=== PATIENT | male | born 1990 | race Two or more races ===

== ENCOUNTER 2018-03-23 21:01 | Observation (INO) | payer OTHER ==
[2018-03-23] MEDS ORDERED: NS 1,000 ML IV ONE (21:08)
--- NOTE | 2018-03-23 21:15 | EDPHY ---
H & P Stated Complaint: 2 SYNCOPAL EPISODES Time Seen by Provider: 03/23/18 21:12 HPI/ROS: CHIEF COMPLAINT: Syncope HISTORY OF PRESENT ILLNESS: 27-year-old male presents after syncopal episode. He was sitting at a restaurant, began to feel lightheaded. He stood up and then had a witnessed syncopal episode. He quickly stood up again and had a recurrent syncopal episode. EMS was called. IV normal saline given. He now feels sleepy, but otherwise better. 1 alcoholic beverage this evening, no drug use. No prior history of syncope and no recent illness. REVIEW OF SYSTEMS: complete 10 point ROS reviewed and is negative except for the noted elements in the HPI - Personal History Current Tetanus Diphtheria and Acellular Pertussis (TDAP): No - Medical/Surgical History Hx Asthma: No Hx Chronic Respiratory Disease: No Hx Diabetes: No Hx Cardiac Disease: No Hx Renal Disease: No Hx Cirrhosis: No Hx Alcoholism: No Hx HIV/AIDS: No Hx Splenectomy or Spleen Trauma: No Other PMH: Denies - Social History Smoking Status: Never smoked Alcohol Use: Occasionally Drug Use: None - Physical Exam Exam: General Appearance: Alert, pleasant Eyes: Pupils equal and round, no conjunctival pallor or injection ENT, Mouth: Mucous membranes moist, tenderness and swelling left mandibular area, able to open/close mouth normally, chin abrasion Neck: Normal inspection, no midline tenderness, range of motion without pain Respiratory: Lungs are clear to auscultation, no chest wall tenderness Cardiovascular: Regular rate and rhythm Gastrointestinal: Abdomen is soft and nontender Neurological: A&O, CN II-XII intact, motor/sensory grossly intact Skin: Warm and dry Extremities: normal inspection Psychiatric: Mood and affect normal Constitutional: Initial Vital Signs Temperature (C) 36.8 C 03/23/18 21:03 Heart Rate 72 03/23/18 21:03 Respiratory Rate 17 03/23/18 21:03 Blood Pressure 107/69 03/23/18 21:03 O2 Sat (%) 100 03/23/18 21:03 O2 Delivery Mode Room Air Allergies/Adverse Reactions: No Known Allergies Allergy (Verified 03/24/18 09:47) Home Medications: Medication Instructions Recorded Multivitamins [Multivitamin (*)] 1 each PO DAILY 03/24/18 Medical Decision Making - Diagnostics EKG Interpretation: EKG interpreted by me reveals normal sinus rhythm, rate 65, incomplete right bundle branch block, ST segment elevation consistent with early repolarization pattern. Interpretation: Borderline EKG. Repeat EKG interpreted by me reveals normal sinus rhythm, rate 67, incomplete right bundle branch block, ST segment elevation, consistent with early repolarization; similar to prior EKG ED Course/Re-evaluation: 10pm: Troponin elevated at 0.15. I consulted Dr. Salazar, who reviewed the patient 's history, labs and EKG on line; no indication for emergent cath tonight. Suggests admission to telemetry overnight to the hospitalist service with serial troponins. ECHO in am. The hospitalist service was consulted for admission. Serial assessments of pt, gradually felt less drowsy and back to his normal state. Contusion left mandibular area, pt able to open close mouth normally, no evidence for fx and no indication for imaging. Differential Diagnosis: Differential diagnosis includes though is not limited to cardiac dysrhythmia, CVA, TIA, GI bleed, sepsis, hypoglycemia. - Data Points Laboratory Results: Laboratory Results 03/23/18 21:37 03/23/18 21:37 Medications Given: Discontinued Medications Aspirin (Aspirin) 81 mg PO ONCE ONE Stop: 03/23/18 23:17 Last Admin: 03/24/18 00:28 Dose: 81 mg Sodium Chloride (Ns) 1,000 mls @ 0 mls/hr IV EDNOW ONE; Wide Open PRN Reason: Protocol Stop: 03/23/18 21:09 Last Admin: 03/23/18 21:17 Dose: 1,000 mls Sodium Chloride (Ns) 1,000 mls @ 125 mls/hr IV CONT SHAJI Stop: 09/19/18 23:29 Last Admin: 03/24/18 03:29 Dose: 1,000 mls Point of Care Test Results: Chemistry 03/23/18 21:39 POC Troponin I 0.15 ng/mL H ng/mL (0.00-0.08) Departure - Departure Disposition: [facility] Inpatient Acute Clinical Impression: Syncope Qualifiers: Syncope type: unspecified Qualified Code(s): R55 - Syncope and collapse Condition: Fair
[2018-03-23 21:46] LABS: PLATELET COUNT 227 10^3/uL (150-400)
--- NOTE | 2018-03-23 23:15 | CPEKG ---
Test Reason : OPEN Blood Pressure : / mmHG Vent. Rate : 065 BPM Atrial Rate : 065 BPM P-R Int : 196 ms QRS Dur : 120 ms QT Int : 397 ms P-R-T Axes : 054 064 010 degrees QTc Int : 413 ms Sinus rhythm Nonspecific intraventricular conduction delay ST elev, probable normal early repol pattern Confirmed by Brenda Henao ([id number]) on 03/23/2018 11:14:49 PM Referred By: Confirmed By:Brenda Henao
[2018-03-23] MEDS ORDERED: ACETAMINOPHEN 325 MG TAB PO PRN (23:16)
[2018-03-23] MEDS ORDERED: ASPIRIN 81 MG CHEWABLE TAB PO ONE (23:16)
[2018-03-23] MEDS ORDERED: ONDANSETRON DISINTEGRATING 4 MG TAB PO PRN (23:16)
[2018-03-23] MEDS ORDERED: ONDANSETRON 4 MG/2 ML VIAL IVP PRN (23:16)
--- NOTE | 2018-03-23 23:16 | CPEKG ---
Test Reason : OPEN Blood Pressure : / mmHG Vent. Rate : 067 BPM Atrial Rate : 067 BPM P-R Int : 170 ms QRS Dur : 118 ms QT Int : 388 ms P-R-T Axes : 035 081 022 degrees QTc Int : 410 ms Sinus rhythm Incomplete right bundle branch block ST elev, probable normal early repol pattern Confirmed by Brenda Henao ([id number]) on 03/23/2018 11:15:48 PM Referred By: Confirmed By:Brenda Henao
[2018-03-23] MEDS ORDERED: NS 1,000 ML IV SCH (23:30)
--- NOTE | 2018-03-23 23:51 | GHP ---
DATE OF ADMISSION: 03/23/2018 HISTORY OF PRESENT ILLNESS: The patient is a 27-year-old gentleman who presents with syncope. He wa s in his usual state of health. He was at a restaurant, [employer] in [place], when he felt li ghtheaded when he stood up, and he passed out. He denies recent fever, chills, cough, sputum, nausea , vomiting, diarrhea. He says he has been eating and drinking normally. He has normal exercise [place]. He does not have a family history of sudden cardiac . He did use a small amount of pierre keith before dinner. He is not intoxicated. He denies eating a large meal. He has no history of se izure disorder. REVIEW OF SYSTEMS: Complete 10-point review of systems conducted negative except as in the HPI. PAST MEDICAL HISTORY: None. ALLERGIES: None. HOME MEDICATIONS: None. 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 Moderate alcohol. No tobacco. FAMILY HISTORY: Reviewed and unremarkable. PHYSICAL EXAMINATION: VITAL SIGNS: Temp 36.8, blood pressure 107/69, pulse 72, breathing 17 times a minute, 100% on room air. GENERAL: No acute distress. HEENT: Sclerae anicteric. Oropharynx sheeba r. Mucous membranes moist. NECK: Supple without lymphadenopathy or JVD. LUNGS: Clear to ausculta tion bilaterally. HEART: S1, S2. No murmur. ABDOMEN: Soft, nontender, nondistended. LOWER EXTRE MITIES: No edema. Calves are nontender. SKIN: Without rash. NEUROLOGIC: Nonfocal. LABS: His chem 7 is normal. The point of care troponin is 0.15; the upper limit of normal is 0.08 i n that test. A laboratory troponin is less than 0.012. CBC: White count 6.9, hematocrit 43, platel ets are 227,000. Chest x-ray interpreted by me shows no acute cardiopulmonary disease. EKG interpre rajeev by me shows sinus at 65 with normal axis and intervals. There is J-point elevation in the precor dial leads consistent with early repolarization. There is no ST or T-wave changes otherwise. A repe at EKG demonstrates the same morphology without dynamic ST or T-wave changes. I have discussed the case with Dr. Josselyn Henao. ASSESSMENT AND PLAN: A 27-year-old gentle with syncope. 1. Syncope. The exact etiology of this is uncertain. I suspect vasovagal given the restaurant sett ing. We will follow him on telemetry. 2. Positive troponin. These point of care troponins are notoriously inaccurate. I suspect that is the etiology of this positive troponin as opposed to actual cardiac process. We will repeat troponin shortly and in the morning and perform echocardiogram. 3. Prophylaxis. Low risk. DISPOSITION: Observation status. /[id number]/MODL
[2018-03-24 10:52] VITALS: BP 112/71
--- NOTE | 2018-03-24 11:59 | ECHO ---
[email or web address] [address] Main: [phone] Fax: Transthoracic Echocardiogram Name: ANDERSON CHRISTOPHER MR#: [id number] Study Date: 03/24/2018 Study Time: 07:44 AM Date of : 1990 Age: 27 year(s) Height: 172.7 cm (68 in.) Weight: 79.38 kg (175 lb.) BSA: 1.93 m2 Gender: Male Examination: Echo Indication: Syncope/indeterminate troponin Image Quality: Technically Difficult Contrast: Requested by: Rainer Gray BP: 108 mmHg/68 mmHg Heart Rate: Rhythm: Indication: Syncope/indeterminate troponin Procedure Staff Medical Records Manager: [facility] Reading Physician: Javid Salazar MD Requesting Provider: Conclusions: Normal size left ventricle. Normal global systolic LV function. The ejection fraction is estimated to be 60-65 %. No regional wall motion abnormality. Normal diastolic LV function. Upper normal size right ventricle. Normal RV function. The left atrium is normal in size. The right atrium is not well visualized. Mild tricuspid regurgitation is present. The pulmonary artery pressure is mildly increased. RVSP is 38 mmHG.. The IVC is moderately dilated. There is no inspiratory collapse of the IVC. RAP 20 mmHg. No pericardial effusion. Measurements: Chambers Valvular Assessment AV/MV Valvular Assessment TV/PV Normal Normal Normal Name Value Range Name Value Range Name Value Range Ao Sangita (MM): 3.3 cm (2.2 cm-3.7 AV Vmax: 0.99 m/s (1 m/s-1.7 TR Vmax: 2.14 mm/s ( - ) cm) m/s) TR PGmax: 18 mmHg ( - ) IVSd (2D): 0.6 cm (0.6 cm-1.1 AV meanP mmHg ( - ) syst. PAP: 38 mmHg ( - ) cm) MV E Vmax: 0.68 m/s ( - ) LVDd (2D): 4.9 cm (4.2 cm-5.9 MV A Vmax: 0.56 m/s ( - ) cm) MV E/A: 1.21 ( - ) LVDs (2D): 3.0 cm (2.1 cm-4 cm) Patient: ANDERSON CHRISTOPHER Study Date: 03/24/2018 Page 1 of 2 07:44 AM LVPWd (2D): 0.7 cm (0.6 cm-1 cm) LVEF (2D): 69 (>=54 %) EF Range: 60-65 % RVDd(2D): 4.1 cm (1.9 cm-3.8 cmmm) Continued Measurements: Chambers Valvular Assessment AV/MV Valvular Assessment TV/PV Name Value Name Value Name Value LADs: 2.7 cm MV E' Septal: 0.10 m/s CVP (est.): 20 mmHg LADs Lon.9 cm MV E/E' Septal: 6.50 LA Area: 12.9 cm2 MV E/E' Lateral: 4.60 LA Volume: 33 ml LA Volume Index: 17.1 ml/m2 Additional Vessels Name Value Ao Ascendin.3 cm Inferior Vena Cava: 2.9 cm Findings: Left Ventricle: Normal size left ventricle. No LV hypertrophy. Normal global systolic LV function. The ejection fraction is estimated to be 60-65 %. No regional wall motion abnormality. Normal diastolic LV function. Right Ventricle: Upper normal size right ventricle. Normal RV function. Left Atrium: The left atrium is normal in size. Right Atrium: The right atrium is not well visualized. Mitral Valve: The mitral valve is normal in appearance and function. Trivial mitral valve regurgitation. Aortic Valve: The aortic valve is normal in appearance and function. Tricuspid Valve: The tricuspid valve is normal in appearance and function. Mild tricuspid regurgitation is present. The pulmonary artery pressure is mildly increased. RVSP is 38 mmHG.. Pulmonic Valve: Pulmonary valve not well visualized. Aorta: The aorta is normal. IVC: The IVC is moderately dilated. There is no inspiratory collapse of the IVC. RAP 20 mmHg. Pericardium: No pericardial effusion. Exam Comments: Right sided chambers difficult to visualize. IVC is dilated and does not collapse. (No Signature Object) Patient: ANDERSON CHRISTOPHER Study Date: 03/24/2018 Page 2 of 2 07:44 AM [id number]
--- NOTE | 2018-03-24 14:22 | ASMTCMCOM ---
CM Note CM Note Notes: Pts case discussed in tx rounds. Pt is a 27 y/o man admitted for syncope. SPL cleared pt. Pt will most likely d/c independent when medically stable. No other therapies ordered at this time. CM available for changes. Plan: Independent Date Signed: 03/24/2018 02:22 PM Electronically Signed By:AYANA Price
--- NOTE | 2018-03-24 17:20 | PDDCSUM ---
Discharge Summary Discharge Summary: This is a 27 yo male who was admitted following a syncopal event while at dinner with his girlfriend. He reported less hydration than usual leading up to this event. No obvious e/o of seizure. He was admitted. Cards was consulted due to one POC mild elevated troponin. 3 other troponins were obtained and were unremarkable. He had an EKG, telemetry, TTE which was unremarkable. He was seen by Cardiology. Etiology is likely a vasovagal event. Per Cardiology, no additional w/u is needed DDX: vasovagal syncope Exam: NAD AAOX3 RRR CTA B MEDS: SEE MED REC F/U: WITH PCP NEEDED TOTAL TIME SPENT ON D/C IS 35 MINS
--- NOTE | 2018-03-25 07:18 | GCON ---
CARDIOLOGY CONSULTATION DATE OF CONSULTATION: 03/24/2018 REFERRING PHYSICIAN: Rainer Gray MD INDICATION FOR CONSULTATION: Syncope. HISTORY OF PRESENT ILLNESS: The patient is a pleasant 27-year-old, physically fit appearing healthy gentleman with no past medical history who was in his usual state of health until last evening when blaire anderson had a syncopal episode while at dinner at [employer]. He states that his day yesterday was normal. He denies any unusual events. He does state that he di d not have regular meals through the course of the day and typically snacks periodically throughout t he course of the day. He states that this is typically not unusual for him. He denied any complaint s of fevers, chills, sweats, nausea, or vomiting. No diarrheal illness. He has been healthy. He st ates that last evening, he and his girlfriend [facility]. He states th yeison had pizza and some dessert. He drank 1 beer while at dinner. He states towards the end of dinner , he began to feel lightheaded and had the since of urgency that he needed to leave to get some fresh air. He explained to his girlfriend that he needed to leave immediately to call his mother. His gi rlfriend comments that this seemed like somewhat of a strange comment, but did not notice anything un usual about his outward appearance at the time. As the patient stood up to leave the restaurant, he took approximately 2 to 3 steps and collapsed to the ground falling backward. His girlfriend reports he was unconscious for several seconds and awoke. At that point, he was assisted up, at which point he collapsed again and lost consciousness again for a few seconds. She states he had some "jerking motion" while on the ground. He ultimately regained consciousness. His girlfriend reports that he a ppeared pale and diaphoretic. She comments that the EMS had documented a low blood pressure. She ca nnot recall heart rate at the initial time of their evaluation. The patient states that he was brought via ambulance to [facility]. He states that w hen he woke from his second syncopal episode, that he felt fatigued, weak, and lethargic. He states these symptoms persisted throughout the course of the evening, but gradually improved. He states thi s morning, he feels back to his baseline. The patient denies any previous history of syncope. He has no family history of syncope. He denies any family history of any arrhythmias, sudden cardiac . He has no family history of premature c oronary artery disease. Currently, at the time of my exam, he is resting comfortably without complaint. Telemetry monitoring has demonstrated normal sinus rhythm with occasional isolated PVCs. I did note 1 non-conducted PAC with brief compensatory pause of under 2 seconds. He has had no symptoms since h is arrival. PAST MEDICAL HISTORY: None. MEDICATIONS ON ADMISSION: None. ALLERGIES: None. SOCIAL HISTORY: He works for a [employer]. He occasionally drinks alcohol. He does not smoke. No marijuana use. FAMILY HISTORY: As described above. PHYSICAL EXAMINATION: VITAL SIGNS: Blood pressure 112/71, heart rate of 55, in sinus rhythm, respir atory rate of 14, oxygen saturation 97% on room air, temperature 36.7. GENERAL: He is awake, alert, oriented, appropriate, in no apparent distress. NECK: There is no evidence of JVP or carotid bruit s. LUNGS: Clear to auscultation bilaterally. CARDIAC: S1, S2. Regular rate and rhythm. No murmu rs, rubs, or gallops. His PMI is not displaced. ABDOMEN: Soft, nontender, nondistended. There is no pulsatile mass or abdominal bruit. EXTREMITIES: There is no evidence of cyanosis, clubbing or ed jaspal. DATA: ECG on presentation demonstrated sinus rhythm at 65 beats per minute with normal intervals and normal axis. ST change segment elevation consistent with early repolarization in a young healthy 27 -year-old gentleman. QT corrected interval of 413 milliseconds. Echocardiogram demonstrated normal left ventricular size and function. Right ventricular size is upp er limits of normal measuring 4.09 cm. Normal right ventricular systolic function. RV systolic pres sure mildly elevated at 38 mmHg. IVC was dilated with right atrial pressure of approximately 20 mmHg with less than 50% inspiratory collapse. No evidence of pericardial effusion. Atrial dimensions we re normal. Chest x-ray demonstrated normal lung quiroga. Chest x-ray comments on gastric distention. Lab work demonstrates white blood cell count of 6.7, hemoglobin of 14.7, hematocrit 42.8, and platele ts of 227. Sodium of 136, potassium 4.2, chloride 105, bicarb 23, BUN 21, creatinine 0.9, glucose 97 . Serum troponins were less than 0.012 x3. Of note, he did have a hofew-ad-khhp troponin that was s lightly elevated at 0.15. As Dr. Gray had duly noted in his H and P, these are notoriously falsely elevated. Serum troponins have been consistently normal. IMPRESSION: Syncope. The patient's symptoms of gradual onset to progression of loss of consciousnes s, followed by repeat loss of consciousness when patient was attempted to be assisted with standing a fter initial collapse, followed by prolonged period of feeling poorly after a syncopal episode with d ocumented hypotension by EMS are all consistent with vasovagal syncope. He has no concerning ECG fin dings. Echocardiogram demonstrates normal left ventricular function. Telemetry has been unremarkabl e. He has no family history of arrhythmias. He does admit to probable dehydration yesterday in the setting of not having regular meals, coupled w ith having a cup of coffee, followed by 4 cups expressed soda throughout the course of the day. I do not think that the patient requires further cardiac workup. Recommended avoiding triggers. I h brandiee recommended that he have regular meals. Recommend regular adequate hydration. I explained to th e patient that I was not opposed to coffee, but recommended decreased coffee consumption. I also discussed with the patient the potential that he could have further syncopal episodes in the f uture if he was not careful to avoid the triggers as described above. I recommend that with onset of symptoms that he get to the ground immediately until symptoms have completely passed. PLAN: 1. No further cardiac workup at this time. 2. Reassurance. 3. Recommend regular meals. 4. Recommend regular adequate hydration. 5. Recommend less expresso consumption. 6. No need for further cardiac workup or outpatient consultation with Cardiology unless he continues to have further symptoms, questions, or concerns. /[id number]/MODL
== END 2018-03-24 16:35 | disposition home or self-care (01) ==
LOC: F2W 23:36
PROVIDERS: ADMIT Internal Medicine; ATTEND Family Medicine
DX: R55 Syncope and collapse (principal)
CPT/HCPCS: 71046; 92523; 93005; 93306; 96360; 99285; G0378; 84484-ER